=== PATIENT | female | born 1970 | race Caucasian/White ===

== ENCOUNTER → 2024-11-17 07:16 | Outpatient (REF) | payer BC, SELFPAY | LOC: HWRCS 07:16 | PROVIDERS: ATTENDING PHYSICIAN Internal Medicine Cardiovascular Disease; FAMILY PHYSICIAN Family Medicine | DX: R00.2 Palpitations (principal); I11.9 Hypertensive heart disease without heart failure | CPT/HCPCS: 93306 ==